=== PATIENT | female | born 1960 | race Caucasian/White ===

== ENCOUNTER 2021-12-07 05:38 | Inpatient (IN) ==
[2021-12-07 07:07] LABS: Basophils # 0.1 K/mcL (0.0-0.2); Basophils % 0.9 %; Eosinophils # 0.4 K/mcL (0.0-0.6); Eosinophils % 4.2 %; Hematocrit 41.3 % (35.3-44.9); Immature Granulocytes % 0.3 % (0-4); Lymphocytes # 1.2 K/mcL (0.6-4.6); Lymphocytes % 11.7 %; Mean Corpuscular HGB Conc 33.9 g/dL (31.6-35.5); Mean Corpuscular Hemoglobin 31.9 pg (28.0-33.3); Mean Corpuscular Volume 94.1 fL (83.0-100.0); Mean Platelet Volume 8.1 fL (9.4-12.4); Monocytes # 0.4 K/mcL (0.0-1.3); Monocytes % 3.8 %; Neutrophils # 7.9 K/mcL (1.6-8.9); Platelet Count 449 K/mcL (140-400); Red Blood Count 4.39 M/mcL (3.82-4.97); Red Cell Distribution Width 12.1 % (11.5-14.5); Segmented Neutrophils % 79.1 %
[2021-12-07] MEDS ORDERED: Ipratropium/Albuterol Neb 3 ML IH ONE ×2 (07:39→10:44)
[2021-12-07 08:03] LABS: Troponin I < 0.03 ng/mL (< 0.04)
[2021-12-07] MEDS ORDERED: Isovue-370 500 ML BOTTLE IVP ONE ×2 (09:17→11:40)
[2021-12-07 10:23] LABS: BUN/Creatinine Ratio 11 (6-26); Blood Urea Nitrogen 9 mg/dL (6-20); Calcium 9.6 mg/dL (8.6-10.3); Carbon Dioxide 21 mEq/L (23-29); Chloride 98 mEq/L (98-107); Glucose 105 mg/dL (70-105); Osmolality,Calculated 269 (280-300); Potassium 4.2 mEq/L (3.5-5.1); Sodium 130 mEq/L (136-145); eGFR For African Americans > 60 (> 60); eGFR For Non-African Americans > 60 (> 60)
[2021-12-07 11:21] LABS: Influenza A PCR Negative (Negative); Influenza B PCR Negative (Negative); Resp. Syncytial Virus PCR Negative (Negative)
[2021-12-07 11:28] LABS: SARS-CoV-2 by PCR (In House) Negative (Negative)
[2021-12-07] MEDS ORDERED: methylPREDNISolone 125 MG/2 ML VIAL IVP ONE (12:30)
[2021-12-07] MEDS ORDERED: Ketorolac 30 MG/ML VIAL IVP ONE (13:23)
[2021-12-07] MEDS ORDERED: Naloxone 0.4 MG/ML INJ IVP PRN (13:35)
[2021-12-07] MEDS: Azithromycin 250 MG TABLET PO SCH (15:14)
[2021-12-07] MEDS: Ipratropium/Albuterol Neb 3 ML IH SCH ×2 (15:32→20:19)
[2021-12-07 15:34] LABS: ABG Base Excess -2 mEq/L (-2 to 3); ABG HCO3 23 mEq/L (21-27); ABG Oxygen Saturation 91 % (95-98); ABG PCO2 36 mmHg (35-45); ABG PO2 61 mmHg (85-104); ABG TCO2 24 mEq/L (20-26)
[2021-12-07] MEDS: *HR* Heparin 5,000 UNIT/ML VIAL SQ SCH (16:55)
[2021-12-07] MEDS: *HR* OxyCODONE/APAP 10/325 TABLET PO PRN (18:08)
[2021-12-07] MEDS: Gabapentin 300 MG CAPSULE PO SCH (21:09)
[2021-12-07] MEDS: Melatonin 3 MG TABLET PO PRN (21:09)
[2021-12-07] MEDS: MethylPREDNISolone 40 MG/ML VIAL IVP SCH (21:09)
[2021-12-08] MEDS: Ipratropium/Albuterol Neb 3 ML IH SCH ×3 (00:07→07:33)
[2021-12-08] MEDS: *HR* OxyCODONE/APAP 10/325 TABLET PO PRN ×3 (05:21→17:54)
[2021-12-08] MEDS: MethylPREDNISolone 40 MG/ML VIAL IVP SCH ×2 (05:22→17:57)
[2021-12-08] MEDS: *HR* Heparin 5,000 UNIT/ML VIAL SQ SCH ×2 (05:23→17:26)
[2021-12-08] MEDS: Ibuprofen 600 MG TABLET PO PRN ×2 (05:28→13:40)
[2021-12-08] MEDS ORDERED: Ipratropium/Albuterol Neb 3 ML IH PRN (08:21)
[2021-12-08] MEDS: Gabapentin 300 MG CAPSULE PO SCH ×3 (08:27→21:09)
[2021-12-08] MEDS: Azithromycin 250 MG TABLET PO SCH (08:27)
[2021-12-08] MEDS ORDERED: Perflutren Lipid Microsphere 1.3 ML in 0.9 % Sodium Chloride 8.7 ML IVP PRN (09:47)
[2021-12-08 10:50] LABS: BUN/Creatinine Ratio 25 (6-26); Blood Urea Nitrogen 21 mg/dL (6-20); Calcium 9.6 mg/dL (8.6-10.3); Carbon Dioxide 25 mEq/L (23-29); Chloride 100 mEq/L (98-107); Glucose 191 mg/dL (70-105); Magnesium 2.1 mg/dL (1.6-2.6); Osmolality,Calculated 276 (280-300); Phosphorous 3.4 mg/dL (2.7-4.5); Potassium 4.6 mEq/L (3.5-5.1); Sodium 129 mEq/L (136-145); eGFR For African Americans > 60 (> 60); eGFR For Non-African Americans > 60 (> 60)
[2021-12-08] MEDS: Melatonin 3 MG TABLET PO PRN (21:09)
[2021-12-09] MEDS: Ibuprofen 600 MG TABLET PO PRN (04:45)
[2021-12-09] MEDS: *HR* Heparin 5,000 UNIT/ML VIAL SQ SCH ×2 (04:46→18:14)
[2021-12-09] MEDS: predniSONE 20 MG TABLET PO SCH (10:04)
[2021-12-09] MEDS: Azithromycin 250 MG TABLET PO SCH (10:04)
[2021-12-09] MEDS: Gabapentin 300 MG CAPSULE PO SCH ×3 (10:04→23:37)
[2021-12-09] MEDS: 0.9 % Sodium Chloride 1,000 ML IVC SCH ×2 (10:18→18:00)
[2021-12-09 10:54] LABS: BUN/Creatinine Ratio 23 (6-26); Blood Urea Nitrogen 22 mg/dL (6-20); Calcium 9.1 mg/dL (8.6-10.3); Carbon Dioxide 29 mEq/L (23-29); Chloride 98 mEq/L (98-107); Glucose 68 mg/dL (70-105); Osmolality,Calculated 278 (280-300); Potassium 3.9 mEq/L (3.5-5.1); Sodium 133 mEq/L (136-145); eGFR For African Americans > 60 (> 60); eGFR For Non-African Americans 60 (> 60)
[2021-12-09] MEDS: *HR* OxyCODONE/APAP 10/325 TABLET PO PRN ×2 (16:02→23:40)
[2021-12-09] MEDS: Melatonin 3 MG TABLET PO PRN (21:05)
[2021-12-10] MEDS: 0.9 % Sodium Chloride 1,000 ML IVC SCH (05:16)
[2021-12-10 07:05] VITALS: BP 102/64; PULSE 70; TEMP 98.2; O2SAT 90
[2021-12-10] MEDS: predniSONE 20 MG TABLET PO SCH (07:56)
[2021-12-10] MEDS: Gabapentin 300 MG CAPSULE PO SCH (07:56)
[2021-12-10] MEDS: Azithromycin 250 MG TABLET PO SCH (07:56)
== END 2021-12-10 09:46 | disposition home or self-care (01) | DRG 190 ==
LOC: EMEROOARM 05:38 → 3BNU 05:38 → SUATTDRO 14:26 → 3BNU 15:00 → SUATTDRO 12-08 09:49
PROVIDERS: ADMIT Family Medicine; ATTEND Internal Medicine

== ENCOUNTER 2022-06-11 12:56 | Observation (INO) ==
[2022-06-11] MEDS ORDERED: predniSONE 20 MG TABLET PO ONE (13:53)
[2022-06-11 14:25] LABS: Hematocrit 41.8 % (35.3-44.9); Hemoglobin 13.9 g/dL (11.5-15.4); Mean Corpuscular HGB Conc 33.3 g/dL (31.6-35.5); Mean Corpuscular Hemoglobin 31.4 pg (28.0-33.3); Mean Corpuscular Volume 94.6 fL (83.0-100.0); Mean Platelet Volume 8.4 fL (9.4-12.4); Platelet Count 400 K/mcL (140-400); Red Blood Count 4.42 M/mcL (3.82-4.97); Red Cell Distribution Width 12.2 % (11.5-14.5); Segmented Neutrophils % 65.1 %; White Blood Count 10.6 K/mcL (4.3-11.1)
[2022-06-11 14:26] LABS: Basophils # 0.2 K/mcL (0.0-0.2); Basophils % 1.5 %; Eosinophils % 9.7 %; Immature Granulocytes % 0.2 % (0-4); Lymphocytes # 1.9 K/mcL (0.6-4.6); Monocytes # 0.6 K/mcL (0.0-1.3); Monocytes % 5.5 %; Neutrophils # 6.9 K/mcL (1.6-8.9)
[2022-06-11 14:38] LABS: VBG HCO3 24 mEq/L (21-27); VBG PCO2 59 mmHg (41-51); VBG PH 7.21 pH Units (7.32-7.42); VBG PO2 44 mmHg (25-50)
[2022-06-11 14:44] LABS: BUN/Creatinine Ratio 15 (6-26); Blood Urea Nitrogen 11 mg/dL (6-20); Calcium 9.1 mg/dL (8.6-10.3); Carbon Dioxide 26 mEq/L (23-29); Chloride 103 mEq/L (98-107); Glucose 140 mg/dL (70-105); Osmolality,Calculated 284 (280-300); Potassium 4.3 mEq/L (3.5-5.1); Sodium 136 mEq/L (136-145); Troponin I < 0.03 ng/mL (< 0.04); eGFR For African Americans > 60 (> 60); eGFR For Non-African Americans > 60 (> 60)
[2022-06-11] MEDS ORDERED: Ipratropium/Albuterol Neb 3 ML IH ONE (15:00)
[2022-06-11 15:21] LABS: Influenza A PCR Negative (Negative); Influenza B PCR Negative (Negative); Resp. Syncytial Virus PCR Negative (Negative)
[2022-06-11 15:28] LABS: SARS-CoV-2 by PCR (In House) Negative (Negative)
[2022-06-11] MEDS ORDERED: Ketorolac 30 MG/ML VIAL IM ONE (15:35)
[2022-06-11] MEDS: Ipratropium/Albuterol Neb 3 ML IH SCH ×4 (15:41→20:16)
[2022-06-11] MEDS ORDERED: Ondansetron 4 MG/2 ML VIAL IVP PRN (15:44)
[2022-06-11] MEDS ORDERED: Naloxone 0.4 MG/ML INJ IVP PRN (15:44)
[2022-06-11 18:13] LABS: VBG HCO3 28 mEq/L (21-27); VBG PCO2 64 mmHg (41-51); VBG PH 7.25 pH Units (7.32-7.42); VBG PO2 87 mmHg (25-50)
[2022-06-11] MEDS: Acetaminophen 325 MG TABLET PO PRN (18:18)
[2022-06-11] MEDS: MethylPREDNISolone 40 MG/ML VIAL IVP SCH (20:52)
[2022-06-11 23:31] VITALS: TEMP 97.8
[2022-06-12] MEDS: Ipratropium/Albuterol Neb 3 ML IH SCH ×5 (00:15→15:52)
[2022-06-12] MEDS: Acetaminophen 325 MG TABLET PO PRN (05:05)
[2022-06-12] MEDS: MethylPREDNISolone 40 MG/ML VIAL IVP SCH (05:05)
[2022-06-12 05:34] LABS: BUN/Creatinine Ratio 26 (6-26); Blood Urea Nitrogen 21 mg/dL (6-20); Carbon Dioxide 28 mEq/L (23-29); Chloride 104 mEq/L (98-107); Glucose 140 mg/dL (70-105); Magnesium 2.1 mg/dL (1.6-2.6); Osmolality,Calculated 289 (280-300); Phosphorous 4.2 mg/dL (2.7-4.5); Potassium 4.7 mEq/L (3.5-5.1); Sodium 137 mEq/L (136-145); eGFR For African Americans > 60 (> 60); eGFR For Non-African Americans > 60 (> 60)
[2022-06-12] MEDS ORDERED: *HR* Enoxaparin 40 MG/0.4 ML SYRINGE SQ SCH (06:00)
[2022-06-12 07:31] VITALS: BP 97/67; PULSE 95
[2022-06-12] MEDS ORDERED: Azithromycin 250 MG TABLET PO SCH (09:00)
[2022-06-12 10:47] VITALS: O2SAT 93
== END 2022-06-12 14:00 | disposition home or self-care (01) ==
LOC: EMEROOARM 12:56 → 3NENU 12:56
PROVIDERS: ADMIT Internal Medicine; ATTEND Internal Medicine

== ENCOUNTER 2022-07-22 22:16 | Inpatient (IN) ==
[2022-07-23] MEDS ORDERED: Ipratropium/Albuterol Neb 3 ML IH ONE (00:16)
[2022-07-23 00:57] LABS: Basophils # 0.2 K/mcL (0.0-0.2); Basophils % 1.3 %; Eosinophils # 1.4 K/mcL (0.0-0.6); Eosinophils % 9.7 %; Hematocrit 42.7 % (35.3-44.9); Immature Granulocytes % 0.3 % (0-4); Lymphocytes # 2.7 K/mcL (0.6-4.6); Mean Corpuscular HGB Conc 32.8 g/dL (31.6-35.5); Mean Corpuscular Volume 94.7 fL (83.0-100.0); Mean Platelet Volume 8.6 fL (9.4-12.4); Monocytes % 7.1 %; Neutrophils # 8.9 K/mcL (1.6-8.9); Platelet Count 339 K/mcL (140-400); Red Blood Count 4.51 M/mcL (3.82-4.97); Red Cell Distribution Width 11.9 % (11.5-14.5); Segmented Neutrophils % 62.6 %; White Blood Count 14.1 K/mcL (4.3-11.1)
[2022-07-23 00:58] LABS: VBG HCO3 26 mEq/L (21-27); VBG PCO2 52 mmHg (41-51); VBG PH 7.31 pH Units (7.32-7.42); VBG PO2 133 mmHg (25-50)
[2022-07-23] MEDS ORDERED: predniSONE 20 MG TABLET PO ONE (01:01)
[2022-07-23 01:13] LABS: BUN/Creatinine Ratio 10 (6-26); Blood Urea Nitrogen 8 mg/dL (6-20); Calcium 9.6 mg/dL (8.6-10.3); Carbon Dioxide 26 mEq/L (23-29); Chloride 100 mEq/L (98-107); Glucose 96 mg/dL (70-105); Osmolality,Calculated 274 (280-300); Potassium 4.1 mEq/L (3.5-5.1); Sodium 133 mEq/L (136-145)
[2022-07-23 01:15] LABS: Troponin I < 0.03 ng/mL (< 0.04)
[2022-07-23 02:45] LABS: Influenza A PCR Negative (Negative); Influenza B PCR Negative (Negative); Resp. Syncytial Virus PCR Negative (Negative)
[2022-07-23 02:46] LABS: SARS-CoV-2 by PCR (In House) Negative (Negative)
[2022-07-23] MEDS ORDERED: Melatonin 3 MG TABLET PO PRN (06:01)
[2022-07-23] MEDS ORDERED: Naloxone 0.4 MG/ML INJ IVP PRN (06:01)
[2022-07-23] MEDS ORDERED: Ondansetron ODT 4 MG TAB.RAPDIS SL PRN (06:01)
[2022-07-23] MEDS ORDERED: *HR* Heparin 5,000 UNIT/ML VIAL SQ SCH (06:15)
[2022-07-23] MEDS ORDERED: Saline Nasal Spray 44 ML BOTTLE NS PRN (06:53)
[2022-07-23] MEDS ORDERED: Ipratropium/Albuterol Neb 3 ML IH SCH (08:00)
[2022-07-23] MEDS: Budesonide/Formoterol 160/4.5 1 PUFF INH IH SCH ×2 (08:57→23:20)
[2022-07-23] MEDS: Tiotropium 10 INH DOSE IH SCH (08:57)
[2022-07-23] MEDS: Albuterol 2.5 MG/3 ML NEBULIZER IH SCH ×3 (08:58→23:21)
[2022-07-23] MEDS: *HR* Heparin 5,000 UNIT/ML VIAL SQ SCH ×2 (14:25→20:16)
[2022-07-23] MEDS: Gabapentin 300 MG CAPSULE PO SCH ×3 (14:40→20:15)
[2022-07-23] MEDS: Acetaminophen 325 MG TABLET PO PRN ×2 (14:40→23:32)
[2022-07-23] MEDS: methylPREDNISolone 125 MG/2 ML VIAL IVP SCH ×2 (19:10→20:16)
[2022-07-23] MEDS: Artificial Tears SOLN 15 ML BOTTLE BOTH EYES SCH ×2 (19:10→20:16)
[2022-07-23] MEDS: Chlorhexidine Rinse 15 ML MOUTHWASH MM SCH ×2 (19:10→20:15)
[2022-07-23 21:36] LABS: Adenovirus Not Detected (Not Detect); Bordetella Pertussis Not Detected (Not Detect); Chlamydophila pneumoniae Not Detected (Not Detect); Coronavirus 229E Not Detected (Not Detect); Coronavirus HKU1 Not Detected (Not Detect); Coronavirus NL63 Not Detected (Not Detect); Coronavirus OC43 Not Detected (Not Detect); Human Metapneumovirus Not Detected (Not Detect); Human Rhinovirus/Enterovirus Not Detected (Not Detect); Influenza A Subtype 2009 H1 Not Detected (Not Detect); Influenza B Not Detected (Not Detect); Mycoplasma pneumoniae Not Detected (Not Detect); Parainfluenza Virus 1 Not Detected (Not Detect); Parainfluenza Virus 2 Not Detected (Not Detect); Parainfluenza Virus 3 Not Detected (Not Detect); Parainfluenza Virus 4 Not Detected (Not Detect); Respiratory Syncytial Virus Not Detected (Not Detect); SARS-CoV-2 Not Detected (Not Detect)
[2022-07-24] MEDS: Albuterol 2.5 MG/3 ML NEBULIZER IH SCH ×4 (04:05→22:34)
[2022-07-24] MEDS: *HR* Heparin 5,000 UNIT/ML VIAL SQ SCH ×3 (05:05→21:25)
[2022-07-24] MEDS: methylPREDNISolone 125 MG/2 ML VIAL IVP SCH ×3 (05:47→18:04)
[2022-07-24] MEDS: Artificial Tears SOLN 15 ML BOTTLE BOTH EYES SCH ×2 (09:07→21:25)
[2022-07-24] MEDS: Gabapentin 300 MG CAPSULE PO SCH ×3 (09:08→21:22)
[2022-07-24] MEDS: Chlorhexidine Rinse 15 ML MOUTHWASH MM SCH ×2 (09:08→21:23)
[2022-07-24] MEDS: Tiotropium 10 INH DOSE IH SCH (10:29)
[2022-07-24] MEDS: Budesonide/Formoterol 160/4.5 1 PUFF INH IH SCH ×2 (10:30→22:34)
[2022-07-24] MEDS: Acetaminophen 325 MG TABLET PO PRN (13:41)
[2022-07-25] MEDS: methylPREDNISolone 125 MG/2 ML VIAL IVP SCH ×2 (02:04→09:31)
[2022-07-25] MEDS: Albuterol 2.5 MG/3 ML NEBULIZER IH SCH ×3 (03:33→15:44)
[2022-07-25] MEDS: Acetaminophen 325 MG TABLET PO PRN (04:49)
[2022-07-25] MEDS: *HR* Heparin 5,000 UNIT/ML VIAL SQ SCH ×2 (05:46→14:36)
[2022-07-25 07:51] VITALS: TEMP 98.3
[2022-07-25 08:39] LABS: Basophils % 0.1 %; Hematocrit 35.4 % (35.3-44.9); Immature Granulocytes % 0.6 % (0-4); Lymphocytes # 0.7 K/mcL (0.6-4.6); Mean Corpuscular HGB Conc 33.1 g/dL (31.6-35.5); Mean Corpuscular Hemoglobin 30.7 pg (28.0-33.3); Mean Corpuscular Volume 92.9 fL (83.0-100.0); Mean Platelet Volume 8.7 fL (9.4-12.4); Monocytes # 0.2 K/mcL (0.0-1.3); Monocytes % 1.2 %; Neutrophils # 12.8 K/mcL (1.6-8.9); Platelet Count 258 K/mcL (140-400); Red Blood Count 3.81 M/mcL (3.82-4.97); Red Cell Distribution Width 11.9 % (11.5-14.5); Segmented Neutrophils % 93.1 %; White Blood Count 13.7 K/mcL (4.3-11.1)
[2022-07-25 08:58] LABS: Calcium 9.1 mg/dL (8.6-10.3); Potassium 3.7 mEq/L (3.5-5.1)
[2022-07-25 08:59] LABS: Hemoglobin 11.7 g/dL (11.5-15.4)
[2022-07-25] MEDS: Gabapentin 300 MG CAPSULE PO SCH ×2 (09:30→14:42)
[2022-07-25] MEDS: Chlorhexidine Rinse 15 ML MOUTHWASH MM SCH (09:32)
[2022-07-25] MEDS: Artificial Tears SOLN 15 ML BOTTLE BOTH EYES SCH (09:32)
[2022-07-25] MEDS: Tiotropium 10 INH DOSE IH SCH (10:46)
[2022-07-25] MEDS: Budesonide/Formoterol 160/4.5 1 PUFF INH IH SCH (10:46)
[2022-07-25 11:50] VITALS: BP 107/57; PULSE 88; O2SAT 93
== END 2022-07-25 16:03 | disposition home or self-care (01) | DRG 190 ==
LOC: 3ANU 22:16 → EMEROOARM 22:16 → SUATTDRO 07-23 11:18 → 3ANU 07-23 13:42
PROVIDERS: ADMIT Internal Medicine; ATTEND Family Medicine